=== PATIENT | female | born 1965 | race Caucasian/White ===

== ENCOUNTER 2018-03-16 00:10 | Emergency (ER) | payer MEDICARE, MEDICAID ==
[~2018-03-16] VITALS: Ht 177.8 cm; Wt 85.0 kg
[~2018-03-16 00:10] MED LIST: ALB0.5UD IH; ALBU8HFA PO; FLO110IN IH; HYDR-3686 PO; NICO-687 TD; RISP0.5T74 PO; TRAZ-143 PO
[2018-03-16 01:53] VITALS: BP 127/75
== END 2018-03-16 01:55 | disposition home or self-care (01) ==
LOC: ER 00:11
DX: J06.9 Acute upper respiratory infection, unspecified (principal); F17.200 Nicotine dependence, unspecified, uncomplicated; F15.10 Other stimulant abuse, uncomplicated; Z88.8 Allergy status to other drugs, medicaments and biological substances
CPT/HCPCS: 99281

== ENCOUNTER 2018-07-05 07:36 | Emergency (ER) | payer MEDICARE, MEDICAID ==
[~2018-07-05] VITALS: Ht 177.8 cm; Wt 78.0 kg
[~2018-07-05 07:36] MED LIST changes: -TRAZ-143 PO; +TRAZ-218 PO
[2018-07-05 08:23] LABS: BASOPHILS # (AUTO) 0.1 X10'3 (0-0.2); BASOPHILS % (AUTO) 1.1 % (0-1); EOSINOPHILS # (AUTO) 0.1 X10'3 (0-0.9); EOSINOPHILS % (AUTO) 2.1 % (0-6); HEMATOCRIT 45.3 % (35.0-45.0); HEMOGLOBIN 15.1 g/dl (12.0-16.0); LYMPHOCYTES # (AUTO) 1.3 X10'3 (1.1-4.8); LYMPHOCYTES % (AUTO) 20.7 % (21-51); MEAN CORPUSCULAR HEMOGLOBIN 30.1 PG (27.0-31.0); MEAN CORPUSCULAR HGB CONC 33.4 % (33.0-36.5); MEAN PLATELET VOLUME 6.8 FL (7.4-10.4); MONOCYTES # (AUTO) 0.4 X10'3 (0-0.9); MONOCYTES % (AUTO) 6.8 % (2-12); NEUTROPHILS # (AUTO) 4.5 X10'3 (1.8-7.7); NEUTROPHILS % (AUTO) 69.3 % (42-75); PLATELET COUNT 480 X10'3 (140-440); RED BLOOD COUNT 5.03 X10'6 (4.20-5.60); RED CELL DISTRIBUTION WIDTH 14.1 % (11.5-14.5); WHITE BLOOD COUNT 6.5 X10'3 (4.5-11.0)
[2018-07-05 08:40] LABS: ALANINE AMINOTRANSFERASE 39 U/L (12-78); ALBUMIN 3.5 G/DL (3.4-5.0); ALBUMIN/GLOBULIN RATIO 0.8 (1.1-1.5); ALKALINE PHOSPHATASE 92 IU/L (46-116); ANION GAP 8 (8-16); ASPARTATE AMINO TRANSFERASE 26 U/L (10-37); BILIRUBIN,TOTAL 0.4 MG/DL (0.1-1.0); BLOOD UREA NITROGEN 7 MG/DL (7-18); BUN/CREATININE RATIO 9.3 (6.6-38.0); CALCIUM 9.5 MG/DL (8.5-10.1); CHLORIDE 103 MMOL/L (99-107); CREATININE 0.75 MG/DL (0.40-0.90); GLUCOSE 79 MG/DL (70-104); POTASSIUM 3.8 MMOL/L (3.5-5.1); SODIUM 139 MMOL/L (135-145); TOTAL CARBON DIOXIDE 28.4 MMOL/L (24-32); TOTAL PROTEIN 7.7 G/DL (6.4-8.2); eGFR 81 ML/MIN
[2018-07-05 08:49] LABS: ETHANOL < 0.010 GM/DL (0.0-0.010)
[2018-07-05] MEDS ORDERED: ipratropium/albuterol 3ml nebule NEB ONE (09:00)
[2018-07-05 09:51] LABS: ACETAMINOPHEN < 2.0 UG/ML (10-30)
[2018-07-05 11:45] LABS: URINE HCG NEGATIVE (NEG)
[2018-07-05 11:47] LABS: CLARITY,URINE CLEAR (Clear); COLOR,URINE STRAW (Yellow); GLUCOSE, URINE NEGATIVE (Neg); KETONES,URINE TRACE mg/dl (Neg); LEUKOCYTE ESTERASE ,URINE SMALL (Neg); NITRITES, URINE NEGATIVE (Neg); OCCULT BLOOD,URINE TRACE-INTACT (Neg); PH,URINE 6.5 (4.8-8.0); PROTEIN,URINE NEGATIVE (Neg); UROBILINOGEN,URINE 0.2 E.U/dL (0.2-1.0)
[2018-07-05 11:48] LABS: UA COLLECTION TYPE VOIDED
[2018-07-05 11:53] LABS: BACTERIA,URINE FEW /HPF (Neg); RBC,URINE 0-2 /HPF (0-2); SQUAMOUS EPITHELIAL CELL,UR FEW /LPF (FEW); TRANSITIONAL EPI CELLS,URINE FEW /HPF; WBC,URINE 0-4 /HPF (0-4)
[2018-07-05 11:54] LABS: URINE AMPHETAMINE SCREEN NEGATIVE (Neg); URINE BARBITUATE SCREEN NEGATIVE (Neg); URINE BENZODIAZEPINES SCREEN NEGATIVE (Neg); URINE CANNABINOID SCREEN NEGATIVE (Neg); URINE COCAINE SCREEN NEGATIVE (Neg); URINE METHADONE SCREEN NEGATIVE (Neg); URINE OPIATE SCREEN NEGATIVE (Neg); URINE PHENCYCLIDINE SCREEN NEGATIVE (Neg)
[2018-07-06] MEDS: risperiDONE 0.5mg tablet PO SCH ×2 (08:09→20:10)
[2018-07-06] MEDS ORDERED: albuterol 2.5 mg/0.5ml nebule NEB PRN (08:10)
[2018-07-06] MEDS: albuterol 2.5 MG/3 ML nebule NEB PRN ×2 (08:56→19:33)
[2018-07-06] MEDS: traZODone 50mg tablet PO SCH (20:10)
[2018-07-07] MEDS: risperiDONE 0.5mg tablet PO SCH ×2 (08:32→20:06)
[2018-07-07] MEDS: albuterol 2.5 MG/3 ML nebule NEB PRN ×2 (13:01→18:29)
[2018-07-07] MEDS ORDERED: LORazepam 1 MG tablet PO ONE (13:10)
[2018-07-07] MEDS: traZODone 50mg tablet PO SCH (20:06)
[2018-07-08] MEDS: risperiDONE 0.5mg tablet PO SCH ×2 (08:59→19:47)
[2018-07-08] MEDS ORDERED: magnesium hydroxide 30ml (MOM) UD suspension PO PRN (13:40)
[2018-07-08] MEDS ORDERED: MIRT15TA PO (13:52)
[2018-07-08] MEDS ORDERED: RISP4TAB7 PO (13:52)
[2018-07-08] MEDS ORDERED: BUPR300T53 PO (13:52)
[2018-07-08] MEDS: albuterol 2.5 MG/3 ML nebule NEB PRN (15:57)
[2018-07-08] MEDS: traZODone 50mg tablet PO SCH (19:47)
[2018-07-08] MEDS: buPROPion SR 150mg tablet PO SCH (19:47)
[2018-07-08] MEDS: mirtazapine 15mg tablet PO SCH (21:00)
[2018-07-08] MEDS: risperiDONE 2mg tablet PO SCH (21:00)
[2018-07-09] MEDS: buPROPion SR 150mg tablet PO SCH ×2 (08:03→19:54)
[2018-07-09] MEDS: risperiDONE 0.5mg tablet PO SCH ×2 (08:03→19:54)
[2018-07-09] MEDS: albuterol 2.5 MG/3 ML nebule NEB PRN (12:42)
[2018-07-09] MEDS: traZODone 50mg tablet PO SCH (19:54)
[2018-07-09] MEDS: mirtazapine 15mg tablet PO SCH (20:33)
[2018-07-09] MEDS: risperiDONE 2mg tablet PO SCH (20:33)
[2018-07-10] MEDS: buPROPion SR 150mg tablet PO SCH ×2 (08:46→20:00)
[2018-07-10] MEDS: risperiDONE 0.5mg tablet PO SCH ×2 (08:46→20:00)
[2018-07-10] MEDS: albuterol 2.5 MG/3 ML nebule NEB PRN (11:37)
[2018-07-10 16:21] LABS: COLOR,URINE YELLOW (Yellow); GLUCOSE, URINE NEGATIVE (Neg); KETONES,URINE NEGATIVE (Neg); LEUKOCYTE ESTERASE ,URINE LARGE (Neg); NITRITES, URINE NEGATIVE (Neg); OCCULT BLOOD,URINE SMALL (Neg); PROTEIN,URINE NEGATIVE (Neg); UROBILINOGEN,URINE 0.2 E.U/dL (0.2-1.0)
[2018-07-10 16:24] LABS: CLARITY,URINE SLIGHTLY CLOUDY (Clear)
[2018-07-10 16:30] LABS: UA COLLECTION TYPE NON-SPECIFIED
[2018-07-10 16:31] LABS: MUCUS STRANDS NONE SEEN /LPF (Neg); SQUAMOUS EPITHELIAL CELL,UR FEW /LPF (FEW)
[2018-07-10 16:32] LABS: RBC,URINE 0-2 /HPF (0-2); WBC,URINE 20-30 /HPF (0-4)
[2018-07-10 16:33] LABS: BACTERIA,URINE NONE SEEN /HPF (Neg)
[2018-07-10] MEDS: traZODone 50mg tablet PO SCH (20:00)
[2018-07-10] MEDS: mirtazapine 15mg tablet PO SCH (20:33)
[2018-07-10] MEDS: risperiDONE 2mg tablet PO SCH (20:35)
[2018-07-11] MEDS: buPROPion SR 150mg tablet PO SCH ×2 (08:00→20:54)
[2018-07-11] MEDS: risperiDONE 0.5mg tablet PO SCH ×2 (08:33→20:54)
[2018-07-11] MEDS: albuterol 2.5 MG/3 ML nebule NEB PRN (10:09)
[2018-07-11] MEDS ORDERED: phenazopyridine 100mg tablet PO ONE (12:50)
[2018-07-11] MEDS ORDERED: nitrofuran/nitrofuran macrocrysal 100 MG capsule PO ONE (13:15)
[2018-07-11] MEDS: nitrofuran/nitrofuran macrocrysal 100 MG capsule PO SCH (20:53)
[2018-07-11] MEDS: risperiDONE 2mg tablet PO SCH (20:54)
[2018-07-11] MEDS: mirtazapine 15mg tablet PO SCH (20:54)
[2018-07-11] MEDS: traZODone 50mg tablet PO SCH (20:54)
[2018-07-12] MEDS ORDERED: CefTRIAXone 1000mg IM Kit (w/lidocaine diluent) IM ONE (06:40)
[2018-07-12] MEDS ORDERED: azithromycin 250mg tablet PO ONE (06:40)
[2018-07-12] MEDS: buPROPion SR 150mg tablet PO SCH ×3 (08:00→20:41)
[2018-07-12] MEDS: nitrofuran/nitrofuran macrocrysal 100 MG capsule PO SCH ×2 (08:43→20:41)
[2018-07-12] MEDS: risperiDONE 0.5mg tablet PO SCH ×2 (08:43→20:41)
[2018-07-12] MEDS: albuterol 2.5 MG/3 ML nebule NEB PRN (20:28)
[2018-07-12] MEDS: mirtazapine 15mg tablet PO SCH ×2 (20:41→20:57)
[2018-07-12] MEDS: risperiDONE 2mg tablet PO SCH ×2 (20:41→20:57)
[2018-07-12] MEDS: traZODone 50mg tablet PO SCH (20:41)
[2018-07-13] MEDS: risperiDONE 0.5mg tablet PO SCH ×2 (08:38→20:26)
[2018-07-13] MEDS: buPROPion SR 150mg tablet PO SCH ×2 (08:38→20:00)
[2018-07-13] MEDS: nitrofuran/nitrofuran macrocrysal 100 MG capsule PO SCH ×2 (08:38→20:29)
[2018-07-13] MEDS: albuterol 2.5 MG/3 ML nebule NEB PRN (19:12)
[2018-07-13] MEDS: traZODone 50mg tablet PO SCH (20:25)
[2018-07-13] MEDS: mirtazapine 15mg tablet PO SCH (20:33)
[2018-07-13] MEDS: risperiDONE 2mg tablet PO SCH (20:33)
[2018-07-14] MEDS: buPROPion SR 150mg tablet PO SCH ×3 (08:00→20:00)
[2018-07-14] MEDS: risperiDONE 0.5mg tablet PO SCH ×2 (08:01→20:07)
[2018-07-14] MEDS: nitrofuran/nitrofuran macrocrysal 100 MG capsule PO SCH ×2 (08:02→20:06)
[2018-07-14] MEDS: traZODone 50mg tablet PO SCH (20:07)
[2018-07-14] MEDS: risperiDONE 2mg tablet PO SCH (20:07)
[2018-07-14] MEDS: mirtazapine 15mg tablet PO SCH (20:10)
[2018-07-15] MEDS: risperiDONE 0.5mg tablet PO SCH (08:06)
[2018-07-15] MEDS: buPROPion SR 150mg tablet PO SCH (08:06)
[2018-07-15] MEDS: nitrofuran/nitrofuran macrocrysal 100 MG capsule PO SCH (08:06)
[2018-07-15 19:39] VITALS: BP 122/57
== END 2018-07-15 19:38 | disposition home or self-care (01) ==
LOC: ER 07:37
DX: T63.79 Toxic effect of contact with other venomous plant (principal); R45.851 Suicidal ideations; J45.909 Unspecified asthma, uncomplicated; F41.9 Anxiety disorder, unspecified; F31.9 Bipolar disorder, unspecified; F20.9 Schizophrenia, unspecified; F15.90 Other stimulant use, unspecified, uncomplicated; Z98.51 Tubal ligation status; Z56.0 Unemployment, unspecified; Z88.8 Allergy status to other drugs, medicaments and biological substances; Z79.899 Other long term (current) drug therapy; Y92.89 Other specified places as the place of occurrence of the external cause
CPT/HCPCS: 36415; 71046; 80053; 80162; 80305; 80320; 80329; 81001; 81025; 84443; 85025; 87088; 87491; 87591; 93005; 94640; 94760; 99285; J7611

== ENCOUNTER 2018-10-02 08:39 | Emergency (ER) | payer MEDICARE, MEDICAID ==
[~2018-10-02] VITALS: Ht 177.8 cm; Wt 73.0 kg
[~2018-10-02 08:39] MED LIST changes: -ALBU8HFA PO; +BUPR300T53 PO; -FLO110IN IH; -HYDR-3686 PO; +MIRT15TA PO; -NICO-687 TD; -RISP0.5T74 PO; +RISP4TAB7 PO; -TRAZ-218 PO
[2018-10-02 09:33] LABS: URINE HCG NEGATIVE (NEG)
[2018-10-02 09:35] LABS: CLARITY,URINE SLIGHTLY CLOUDY (Clear); COLOR,URINE YELLOW (Yellow); GLUCOSE, URINE NEGATIVE (Neg); KETONES,URINE TRACE mg/dl (Neg); LEUKOCYTE ESTERASE ,URINE TRACE (Neg); NITRITES, URINE NEGATIVE (Neg); OCCULT BLOOD,URINE NEGATIVE (Neg); PROTEIN,URINE NEGATIVE (Neg)
[2018-10-02 09:44] LABS: UA COLLECTION TYPE CLN CATCH MIDSTREAM
[2018-10-02 09:45] LABS: URINE AMPHETAMINE SCREEN NEGATIVE (Neg); URINE BARBITUATE SCREEN NEGATIVE (Neg); URINE BENZODIAZEPINES SCREEN NEGATIVE (Neg); URINE CANNABINOID SCREEN POSITIVE (Neg); URINE COCAINE SCREEN NEGATIVE (Neg); URINE METHADONE SCREEN NEGATIVE (Neg); URINE OPIATE SCREEN NEGATIVE (Neg); URINE PHENCYCLIDINE SCREEN NEGATIVE (Neg)
[2018-10-02 09:47] LABS: BACTERIA,URINE FEW /HPF (Neg); MUCUS STRANDS MODERATE /LPF (Neg); RBC,URINE 0-2 /HPF (0-2); SQUAMOUS EPITHELIAL CELL,UR FEW /LPF (FEW); WBC,URINE 0-4 /HPF (0-4)
[2018-10-02 10:06] LABS: BASOPHILS % (AUTO) 0.4 % (0-1); EOSINOPHILS # (AUTO) 0.1 X10'3 (0-0.9); EOSINOPHILS % (AUTO) 1.5 % (0-6); HEMATOCRIT 40.2 % (35.0-45.0); HEMOGLOBIN 13.4 g/dl (12.0-16.0); LYMPHOCYTES # (AUTO) 1.4 X10'3 (1.1-4.8); LYMPHOCYTES % (AUTO) 19.7 % (21-51); MEAN CORPUSCULAR HEMOGLOBIN 30.4 PG (27.0-31.0); MEAN CORPUSCULAR HGB CONC 33.3 % (33.0-36.5); MEAN CORPUSCULAR VOLUME 91.2 FL (78-98); MEAN PLATELET VOLUME 7.4 FL (7.4-10.4); MONOCYTES # (AUTO) 0.5 X10'3 (0-0.9); MONOCYTES % (AUTO) 7.5 % (2-12); NEUTROPHILS # (AUTO) 5.2 X10'3 (1.8-7.7); NEUTROPHILS % (AUTO) 70.9 % (42-75); PLATELET COUNT 358 X10'3 (140-440); RED CELL DISTRIBUTION WIDTH 14.3 % (11.5-14.5); WHITE BLOOD COUNT 7.3 X10'3 (4.5-11.0)
[2018-10-02] MEDS ORDERED: ipratropium/albuterol 3ml nebule NEB ONE (10:15)
[2018-10-02 10:18] LABS: ALANINE AMINOTRANSFERASE 26 U/L (12-78); ALBUMIN 3.2 G/DL (3.4-5.0); ALBUMIN/GLOBULIN RATIO 0.9 (1.1-1.5); ALKALINE PHOSPHATASE 66 IU/L (46-116); ANION GAP 6 (8-16); BILIRUBIN,TOTAL 0.3 MG/DL (0.1-1.0); BLOOD UREA NITROGEN 11 MG/DL (7-18); BUN/CREATININE RATIO 14.5 (6.6-38.0); CALCIUM 9.4 MG/DL (8.5-10.1); CHLORIDE 105 MMOL/L (99-107); CREATININE 0.76 MG/DL (0.40-0.90); GLUCOSE 96 MG/DL (70-104); POTASSIUM 3.8 MMOL/L (3.5-5.1); SODIUM 140 MMOL/L (135-145); TOTAL CARBON DIOXIDE 29.5 MMOL/L (24-32); TOTAL PROTEIN 6.6 G/DL (6.4-8.2); eGFR 79 ML/MIN
[2018-10-02 10:21] LABS: ETHANOL < 0.010 GM/DL (0.0-0.010)
[2018-10-02 10:24] LABS: ASPARTATE AMINO TRANSFERASE 14 U/L (10-37)
[2018-10-02] MEDS: risperiDONE 2mg tablet PO SCH (20:00)
[2018-10-02] MEDS ORDERED: dexamethasone 4mg tablet PO ONE (23:05)
[2018-10-03 06:09] VITALS: BP 129/64
[2018-10-03] MEDS: risperiDONE 2mg tablet PO SCH (08:14)
== END 2018-10-03 15:33 ==
LOC: ER 08:40
DX: R45.851 Suicidal ideations (principal); R45.850 Homicidal ideations; J45.909 Unspecified asthma, uncomplicated; F41.9 Anxiety disorder, unspecified; F31.9 Bipolar disorder, unspecified; F20.9 Schizophrenia, unspecified; F15.90 Other stimulant use, unspecified, uncomplicated; F17.200 Nicotine dependence, unspecified, uncomplicated; Z56.0 Unemployment, unspecified; Z98.51 Tubal ligation status; Z88.8 Allergy status to other drugs, medicaments and biological substances; Z88.5 Allergy status to narcotic agent; Z79.899 Other long term (current) drug therapy
CPT/HCPCS: 36415; 80053; 80305; 80320; 81001; 81025; 84443; 85025; 94640; 94760; 99285; J8540

== ENCOUNTER → 2018-11-28 | Emergency (ER) | payer MEDICARE, MEDICAID ==
[~2018-11-28] VITALS: Ht 177.8 cm; Wt 48.5 kg
[~2018-11-28] MED LIST changes: +albuterol 2.5 MG/3 ML nebule NEB PRN
--- NOTE | 2018-11-28 19:02 | NUR ---
PT PLACED IN HALLWAY AND SECURITY PRESENT OUTSIDE -
[2018-11-28 20:20] LABS: BASOPHILS % (AUTO) 0.4 % (0-1); EOSINOPHILS # (AUTO) 0.3 X10'3 (0-0.9); EOSINOPHILS % (AUTO) 3.5 % (0-6); HEMATOCRIT 37.6 % (35.0-45.0); HEMOGLOBIN 12.9 g/dl (12.0-16.0); LYMPHOCYTES # (AUTO) 2.4 X10'3 (1.1-4.8); LYMPHOCYTES % (AUTO) 30.1 % (21-51); MEAN CORPUSCULAR HEMOGLOBIN 30.8 PG (27.0-31.0); MEAN CORPUSCULAR HGB CONC 34.4 g/dL (33.0-36.5); MEAN CORPUSCULAR VOLUME 89.6 FL (78-98); MEAN PLATELET VOLUME 6.8 FL (7.4-10.4); MONOCYTES # (AUTO) 0.6 X10'3 (0-0.9); MONOCYTES % (AUTO) 7.8 % (2-12); NEUTROPHILS # (AUTO) 4.7 X10'3 (1.8-7.7); NEUTROPHILS % (AUTO) 58.2 % (42-75); PLATELET COUNT 370 X10'3 (140-440); RED CELL DISTRIBUTION WIDTH 13.2 % (11.5-14.5); WHITE BLOOD COUNT 8.1 X10'3 (4.5-11.0)
[2018-11-28 20:38] LABS: ALANINE AMINOTRANSFERASE 24 U/L (12-78); ALBUMIN 3.4 G/DL (3.4-5.0); ALBUMIN/GLOBULIN RATIO 0.9 (1.1-1.5); ALKALINE PHOSPHATASE 77 IU/L (46-116); ANION GAP 9 (8-16); ASPARTATE AMINO TRANSFERASE 18 U/L (10-37); BILIRUBIN,TOTAL 0.6 MG/DL (0.1-1.0); BLOOD UREA NITROGEN 7 MG/DL (7-18); BUN/CREATININE RATIO 9.7 (6.6-38.0); CALCIUM 9.3 MG/DL (8.5-10.1); CHLORIDE 104 MMOL/L (99-107); CREATININE 0.72 MG/DL (0.40-0.90); GLUCOSE 106 MG/DL (70-104); POTASSIUM 3.8 MMOL/L (3.5-5.1); SODIUM 140 MMOL/L (135-145); TOTAL PROTEIN 7.1 G/DL (6.4-8.2); eGFR 84 ML/MIN
[2018-11-28 20:47] LABS: ETHANOL < 0.010 GM/DL (0.0-0.010)
--- NOTE | 2018-11-28 20:56 | NUR ---
CONTACTED TELEPSYCH TO INITIATE CONSULT.
[2018-11-28 20:58] LABS: CLARITY,URINE CLEAR (Clear); COLOR,URINE YELLOW (Yellow); GLUCOSE, URINE NEGATIVE (Neg); KETONES,URINE NEGATIVE (Neg); LEUKOCYTE ESTERASE ,URINE NEGATIVE (Neg); NITRITES, URINE NEGATIVE (Neg); OCCULT BLOOD,URINE NEGATIVE (Neg); PROTEIN,URINE NEGATIVE (Neg); UROBILINOGEN,URINE 0.2 E.U/dL (0.2-1.0)
[2018-11-28 21:03] LABS: UA COLLECTION TYPE CLN CATCH MIDSTREAM
[2018-11-28 21:10] LABS: URINE AMPHETAMINE SCREEN NEGATIVE (Neg); URINE BARBITUATE SCREEN NEGATIVE (Neg); URINE BENZODIAZEPINES SCREEN NEGATIVE (Neg); URINE CANNABINOID SCREEN POSITIVE (Neg); URINE COCAINE SCREEN NEGATIVE (Neg); URINE METHADONE SCREEN NEGATIVE (Neg); URINE OPIATE SCREEN NEGATIVE (Neg); URINE PHENCYCLIDINE SCREEN NEGATIVE (Neg)
--- NOTE | 2018-11-29 01:45 | NUR ---
PT LYING ON STOMACH WITH BLANKETS PULLED TO SHOULDERS. EVEN, UNLABORED BREATHS. NO DISTRESS NOTED. WILL CONTINUE TO MONITOR PT.
--- NOTE | 2018-11-29 04:54 | NUR ---
PT LYING ON STOMACH WITH BLANKETS PULLED TO SHOULDERS. EVEN, UNLABORED BREATHS. NO DISTRESS NOTED. WILL CONTINUE TO MONITOR.
--- NOTE | 2018-11-29 22:50 | NUR ---
pt sleeping, no c/o
--- NOTE | 2018-11-30 01:11 | NUR ---
pt up to bathroom, no c/o
--- NOTE | 2018-11-30 05:52 | NUR ---
pt sleeping, no new c/o
--- NOTE | 2018-11-30 08:18 | NUR ---
ASLEEP. EASILY AWAKENED. ALERT AND COOPERATIVE. DENIES NEEDS AT THIS TIME. SUICIDE PRECAUTIONS IN PLACE. NO DISTRESS NOTED.
--- NOTE | 2018-11-30 14:00 | NUR ---
TOLERATED REGULAR DIET LUNCH WELL AND RETAINED.
--- NOTE | 2018-11-30 14:32 | NUR ---
RESTING ON GURNEY. UP TO BATHROOM EARLIER AND HAD VOID/BM.
--- NOTE | 2018-11-30 16:05 | NUR ---
Pt walked back by [facility] and security from main ER to ER overflow bed 21 at 1605.
--- NOTE | 2018-11-30 17:08 | NUR ---
Attempted to assess the pt, she allowed the physical assessment. Pt declined to participate fully in the mental health assessment, stated that she did not want to kill herself, that she was here for "trauma." When asked what kind of trauma, pt declined to elaborate. When asked the pt if she smoked cigarettes, she replied with, "who needs to know." Explained that we just needed to know if she would need a nicotine patch while she was here, pt pulled the blanket over her head and refused to answer any further questions.
--- NOTE | 2018-11-30 19:07 | NUR ---
Assumed care, patient currently resting in bed eating her dinner.
[2018-11-30] MEDS: buPROPion SR 150mg tablet PO SCH (20:35)
[2018-11-30] MEDS: mirtazapine 15mg tablet PO SCH (20:35)
[2018-11-30] MEDS: risperiDONE 2mg tablet PO SCH (20:36)
--- NOTE | 2018-11-30 21:07 | NUR ---
Patient took HS medications without issue. She is now resting in bed with her eyes closed.
--- NOTE | 2018-11-30 23:00 | NUR ---
Patient lays in bed with the pillow covering her head. Safety Consultant engages pt in conversation, she is tearful and keeps saying, "I cry all the time, I just cry and cry and cry." Safety Consultant asks why she is crying and she responds by mumbling about her two sons. When scenario writer asks her to clarify her statements she says, "I know I just sound delusional but they are doing some Nelly shit. It's Nelly shit." Safety Consultant asks pt if she is feeling suicidal or if she has any thoughts of hurting herself. She responds, "no, no I don't it's not like that." Pt is cooperative with physical assessment and denies any pain or discomfort. She is compliant with her HS medications. She denies any AH/VH.
--- NOTE | 2018-12-01 01:00 | NUR ---
Patient is currently alseep in bed. No signs or symptoms of distress.
--- NOTE | 2018-12-01 03:00 | NUR ---
Patient is asleep in bed. No signs or symptoms of distress.
--- NOTE | 2018-12-01 05:20 | NUR ---
Patient is still asleep in bed. No signs or symptoms of distress.
[2018-12-01] MEDS: buPROPion SR 150mg tablet PO SCH ×2 (09:00→20:18)
[2018-12-01 17:33] VITALS: BP 110/51
[2018-12-01] MEDS: mirtazapine 15mg tablet PO SCH (20:18)
[2018-12-01] MEDS: risperiDONE 2mg tablet PO SCH (20:19)
== END ==
LOC: ER 18:40
DX: R45.851 Suicidal ideations (principal); J44.9 Chronic obstructive pulmonary disease, unspecified; F15.90 Other stimulant use, unspecified, uncomplicated; Z56.0 Unemployment, unspecified; Z98.51 Tubal ligation status; Z88.8 Allergy status to other drugs, medicaments and biological substances; Z79.899 Other long term (current) drug therapy
CPT/HCPCS: 36415; 80053; 80305; 80320; 81003; 84443; 85025; 99285

== ENCOUNTER 2019-01-22 01:28 | Emergency (ER) | payer MEDICARE, MEDICAID ==
[~2019-01-22] VITALS: Ht 177.8 cm; Wt 77.0 kg
[~2019-01-22 01:28] MED LIST changes: -albuterol 2.5 MG/3 ML nebule NEB PRN
[2019-01-22 01:33] VITALS: BP 130/79
--- NOTE | 2019-01-22 01:55 | NUR ---
TELE PSYCH CALLED FOR EVAL. CAMERA SET UP IN THE ROOM
--- NOTE | 2019-01-22 02:06 | NUR ---
PT. 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 CALL PLACED TO SHER. OFFICERS IN ROUTE PER DISPATCH.
[2019-01-22 02:19] LABS: URINE HCG NEGATIVE (NEG)
[2019-01-22 02:29] LABS: ALANINE AMINOTRANSFERASE 26 U/L (12-78); ALBUMIN 3.7 G/DL (3.4-5.0); ALBUMIN/GLOBULIN RATIO 1.1 (1.1-1.5); ALKALINE PHOSPHATASE 75 IU/L (46-116); ANION GAP 10 (8-16); ASPARTATE AMINO TRANSFERASE 21 U/L (10-37); BILIRUBIN,TOTAL 0.7 MG/DL (0.1-1.0); BLOOD UREA NITROGEN 8 MG/DL (7-18); BUN/CREATININE RATIO 11.1 (6.6-38.0); CALCIUM 9.5 MG/DL (8.5-10.1); CHLORIDE 102 MMOL/L (99-107); CREATININE 0.72 MG/DL (0.40-0.90); GLUCOSE 90 MG/DL (70-104); POTASSIUM 3.5 MMOL/L (3.5-5.1); SODIUM 135 MMOL/L (135-145); TOTAL CARBON DIOXIDE 23.2 MMOL/L (24-32); TOTAL PROTEIN 7.2 G/DL (6.4-8.2); eGFR 84 ML/MIN
[2019-01-22 02:29] LABS: URINE AMPHETAMINE SCREEN NEGATIVE (Neg); URINE BARBITUATE SCREEN NEGATIVE (Neg); URINE BENZODIAZEPINES SCREEN NEGATIVE (Neg); URINE CANNABINOID SCREEN NEGATIVE (Neg); URINE COCAINE SCREEN NEGATIVE (Neg); URINE METHADONE SCREEN NEGATIVE (Neg); URINE OPIATE SCREEN NEGATIVE (Neg); URINE PHENCYCLIDINE SCREEN NEGATIVE (Neg)
[2019-01-22 02:36] LABS: BASOPHILS # (AUTO) 0.1 X10'3 (0-0.2); BASOPHILS % (AUTO) 0.6 % (0-1); EOSINOPHILS # (AUTO) 0.1 X10'3 (0-0.9); EOSINOPHILS % (AUTO) 1.5 % (0-6); HEMOGLOBIN 13.2 g/dl (12.0-16.0); LYMPHOCYTES # (AUTO) 2.8 X10'3 (1.1-4.8); LYMPHOCYTES % (AUTO) 33.6 % (21-51); MEAN CORPUSCULAR HEMOGLOBIN 30.2 PG (27.0-31.0); MEAN CORPUSCULAR HGB CONC 33.7 g/dL (33.0-36.5); MEAN CORPUSCULAR VOLUME 89.6 FL (78-98); MEAN PLATELET VOLUME 7.1 FL (7.4-10.4); MONOCYTES # (AUTO) 0.6 X10'3 (0-0.9); MONOCYTES % (AUTO) 7.6 % (2-12); NEUTROPHILS # (AUTO) 4.7 X10'3 (1.8-7.7); NEUTROPHILS % (AUTO) 56.7 % (42-75); PLATELET COUNT 377 X10'3 (140-440); RED BLOOD COUNT 4.36 X10'6 (4.20-5.60); RED CELL DISTRIBUTION WIDTH 13.3 % (11.5-14.5); WHITE BLOOD COUNT 8.4 X10'3 (4.5-11.0)
[2019-01-22 02:39] LABS: ETHANOL < 0.010 GM/DL (0.0-0.010)
--- NOTE | 2019-01-22 03:05 | NUR ---
S[facility]A LOG NUMBER : [id number]
[2019-01-22] MEDS ORDERED: NO HOME MEDS (16:43)
== END 2019-01-22 05:01 ==
LOC: ER 01:29
DX: F32.9 Major depressive disorder, single episode, unspecified (principal); R45.850 Homicidal ideations; F41.9 Anxiety disorder, unspecified; F20.9 Schizophrenia, unspecified; J45.909 Unspecified asthma, uncomplicated; F15.90 Other stimulant use, unspecified, uncomplicated; Z98.51 Tubal ligation status; Z88.8 Allergy status to other drugs, medicaments and biological substances; Z79.899 Other long term (current) drug therapy; Z59.0 Homelessness; Z56.0 Unemployment, unspecified
CPT/HCPCS: 36415; 80053; 80305; 80320; 81025; 84443; 85025; 99285

== ENCOUNTER 2019-01-22 15:26 | Emergency (ER) | payer MEDICARE, MEDICAID ==
[~2019-01-22] VITALS: Ht 177.8 cm; Wt 78.0 kg
[2019-01-22] MEDS ORDERED: LORazepam 1 MG tablet PO ONE (15:35)
[2019-01-22 16:05] LABS: CLARITY,URINE CLEAR (Clear); COLOR,URINE STRAW (Yellow); GLUCOSE, URINE NEGATIVE (Neg); KETONES,URINE NEGATIVE (Neg); LEUKOCYTE ESTERASE ,URINE NEGATIVE (Neg); NITRITES, URINE NEGATIVE (Neg); OCCULT BLOOD,URINE NEGATIVE (Neg); PH,URINE 5.5 (4.8-8.0); PROTEIN,URINE NEGATIVE (Neg); UROBILINOGEN,URINE 0.2 E.U/dL (0.2-1.0)
[2019-01-22 16:06] LABS: UA COLLECTION TYPE CLN CATCH MIDSTREAM
[2019-01-22 16:15] LABS: BASOPHILS # (AUTO) 0.1 X10'3 (0-0.2); BASOPHILS % (AUTO) 0.9 % (0-1); EOSINOPHILS # (AUTO) 0.2 X10'3 (0-0.9); EOSINOPHILS % (AUTO) 2.3 % (0-6); HEMATOCRIT 40.6 % (35.0-45.0); HEMOGLOBIN 13.7 g/dl (12.0-16.0); LYMPHOCYTES # (AUTO) 2.4 X10'3 (1.1-4.8); LYMPHOCYTES % (AUTO) 32.2 % (21-51); MEAN CORPUSCULAR HEMOGLOBIN 30.6 PG (27.0-31.0); MEAN CORPUSCULAR HGB CONC 33.7 g/dL (33.0-36.5); MEAN CORPUSCULAR VOLUME 90.9 FL (78-98); MEAN PLATELET VOLUME 6.9 FL (7.4-10.4); MONOCYTES # (AUTO) 0.5 X10'3 (0-0.9); MONOCYTES % (AUTO) 6.7 % (2-12); NEUTROPHILS # (AUTO) 4.3 X10'3 (1.8-7.7); NEUTROPHILS % (AUTO) 57.9 % (42-75); PLATELET COUNT 380 X10'3 (140-440); RED BLOOD COUNT 4.47 X10'6 (4.20-5.60); RED CELL DISTRIBUTION WIDTH 13.5 % (11.5-14.5); WHITE BLOOD COUNT 7.3 X10'3 (4.5-11.0)
[2019-01-22 16:17] LABS: URINE AMPHETAMINE SCREEN NEGATIVE (Neg); URINE BARBITUATE SCREEN NEGATIVE (Neg); URINE BENZODIAZEPINES SCREEN NEGATIVE (Neg); URINE CANNABINOID SCREEN NEGATIVE (Neg); URINE COCAINE SCREEN NEGATIVE (Neg); URINE METHADONE SCREEN NEGATIVE (Neg); URINE OPIATE SCREEN NEGATIVE (Neg); URINE PHENCYCLIDINE SCREEN NEGATIVE (Neg)
[2019-01-22 16:22] LABS: ALANINE AMINOTRANSFERASE 28 U/L (12-78); ALBUMIN 3.9 G/DL (3.4-5.0); ALBUMIN/GLOBULIN RATIO 1.1 (1.1-1.5); ALKALINE PHOSPHATASE 78 IU/L (46-116); ANION GAP 4 (8-16); ASPARTATE AMINO TRANSFERASE 21 U/L (10-37); BILIRUBIN,TOTAL 0.6 MG/DL (0.1-1.0); BLOOD UREA NITROGEN 9 MG/DL (7-18); BUN/CREATININE RATIO 12.3 (6.6-38.0); CALCIUM 9.6 MG/DL (8.5-10.1); CHLORIDE 103 MMOL/L (99-107); CREATININE 0.73 MG/DL (0.40-0.90); GLUCOSE 109 MG/DL (70-104); POTASSIUM 3.3 MMOL/L (3.5-5.1); SODIUM 138 MMOL/L (135-145); TOTAL CARBON DIOXIDE 31.3 MMOL/L (24-32); TOTAL PROTEIN 7.6 G/DL (6.4-8.2); eGFR 83 ML/MIN
[2019-01-22 16:32] LABS: ETHANOL < 0.010 GM/DL (0.0-0.010)
[2019-01-22] MEDS ORDERED: NO HOME MEDS (16:43)
--- NOTE | 2019-01-22 16:50 | NUR ---
Telepych consult initiated. Patient changed into green scrubs. Belongings locked up.
--- NOTE | 2019-01-22 18:06 | NUR ---
Patient sleeping in bed, repirations even. No ditress noted.
--- NOTE | 2019-01-22 19:15 | NUR ---
Pt arrived in the unit via wheelchair, walked to her bed, and laid in bed and closed her eyes.
--- NOTE | 2019-01-22 20:02 | NUR ---
Telesych initiated, pt sat up in bed to talk to the , but she was not able to stay awake to answer any questions. requested that adjusto writer operator call back when pt is more alert.
--- NOTE | 2019-01-22 22:00 | NUR ---
pt asleep on Left side, no signs or symptoms of distress observed. Pt offered sandwich, pt just shook her head and went back to sleep.
--- NOTE | 2019-01-23 00:05 | NUR ---
Pt asleep, got up to use the restroom.
--- NOTE | 2019-01-23 03:00 | NUR ---
Pt got up to us the restoom and fell back asleep upon returning to her bed.
--- NOTE | 2019-01-23 05:38 | NUR ---
PT is resting in bed, respirations WNL.
[2019-01-23 06:06] VITALS: BP 109/63
[2019-01-23] MEDS ORDERED: ipratropium/albuterol 3ml nebule NEB ONE (08:45)
--- NOTE | 2019-01-23 09:35 | NUR ---
NEB TREATMENT GIVEN PER RESP THERAPIST. TOLERATED WELL.
--- NOTE | 2019-01-23 11:27 | NUR ---
patientalert appropriate, up to nurses station and asking to take a shower
--- NOTE | 2019-01-23 11:28 | NUR ---
offered warm bath wipes and a shower cap and patient walked away and went back and laid in bed
--- NOTE | 2019-01-23 11:45 | NUR ---
patient in bathroom using warm bath wipes and provided shampoo cap to wash hair
--- NOTE | 2019-01-23 11:46 | NUR ---
looked at telephysch reoprt from [facility] which appears to contain some misinformation. I triaged patient yesterday. patient was not brought in by police; patient came from [facility] where an rn wrote the [id number]. the patient was given ativan due to anxiety and not agitation; patient was not agitated in triage now, when questioned about yesterday, the patient is quite manipulative and claims that she has no recollection of how or from where she [facility], per josesito hansen, patient has asked multiple times today for a shower
--- NOTE | 2019-01-23 12:46 | NUR ---
ROSAURA FROM [facility], NURSE FERNANDEZ. CONDITION REPORT GIVEN. PATIENT WILL POSSIBLY BE ACCEPTED TO THIS FACILITY FOR INPATIENT SERVICES.
--- NOTE | 2019-01-23 13:25 | NUR ---
ROSAURA FROM [facility] WITH TRANSPORTATION ARRANGEMENTS TO [facility]. TOLL OPERATOR ESTIMATED TO ARRIVE AT APPROX 1410 THIS AFTERNOON.
--- NOTE | 2019-01-23 14:17 | NUR ---
UP TO BATHROOM WITH STEADY GAIT. TOLERATED LUNCH WELL.
== END 2019-01-23 15:00 ==
LOC: ER 15:26
DX: F41.9 Anxiety disorder, unspecified (principal); F32.9 Major depressive disorder, single episode, unspecified; F20.9 Schizophrenia, unspecified; J45.909 Unspecified asthma, uncomplicated; F15.90 Other stimulant use, unspecified, uncomplicated; Z88.8 Allergy status to other drugs, medicaments and biological substances; Z59.0 Homelessness; Z56.0 Unemployment, unspecified
CPT/HCPCS: 36415; 80053; 80305; 80320; 81003; 84443; 85025; 94760; 99285